=== PATIENT | female | born 1945 | race Caucasian/White ===

== ENCOUNTER 2018-06-19 18:51 | Emergency (ER) | payer MEDICARE ==
--- NOTE | 2018-06-19 20:40 | RAD ---
THREE VIEWS OF THE RIGHT FOOT: 06/19/18 COMPARISON: None. HISTORY: Injured right foot on Friday when a pipe fell on it. FINDINGS: Three views of the right foot shows postsurgical change of the great toe with resection of a part of the first metatarsal head. There is no evidence of acute fracture or dislocation. Severe distal dorsa l soft tissue swelling is seen. IMPRESSION: Soft tissue swelling without acute osseous abnormality. POS: [facility]
== END 2018-06-19 20:00 | disposition home or self-care (01) ==
LOC: NAV ERS 18:51
DX: S90.31XA Contusion of right foot, initial encounter (principal); F41.0 Panic disorder [episodic paroxysmal anxiety]; Z87.891 Personal history of nicotine dependence; W01.198A Fall on same level from slipping, tripping and stumbling with subsequent striking against other object, initial encounter

== ENCOUNTER 2019-04-08 12:14 | Emergency (ER) | payer MEDICARE ==
--- NOTE | 2019-04-08 13:22 | RAD ---
Exam: XR Knee Rt 4 View STANDARD HISTORY: Right knee pain. No known injury. COMPARISON: None FINDINGS: There is tricompartment osteophytosis. There is mild narrowing of the medial joint compartment as wel l as patellofemoral joint.. No acute fracture, dislocation, or other acute osseous abnormality is identified. IMPRESSION: Osteoarthritis without evidence of an acute osseous abnormality.
== END 2019-04-08 13:52 | disposition home or self-care (01) ==
LOC: NAV ERS 12:14
DX: M17.11 Unilateral primary osteoarthritis, right knee (principal); Z87.891 Personal history of nicotine dependence; W18.30XA Fall on same level, unspecified, initial encounter
CPT/HCPCS: 85379

== ENCOUNTER 2021-09-06 16:39 | Outpatient (CLI) | payer MEDICARE | END 2021-09-06 16:40 | disposition home or self-care (01) | LOC: NAV RAD 16:39 | PROVIDERS: ATTEND Family Medicine | DX: L03.113 Cellulitis of right upper limb (principal); M19.031 Primary osteoarthritis, right wrist; M19.041 Primary osteoarthritis, right hand; M18.11 Unilateral primary osteoarthritis of first carpometacarpal joint, right hand ==